=== PATIENT | female | born 1960 | race Caucasian/White ===

== ENCOUNTER 2021-01-31 19:04 | Inpatient (IN) | payer BC ==
[~2021-01-31] VITALS: Ht 157.5 cm; Wt 89.8 kg
[2021-01-31 19:57] LABS: BASOPHILS 0.3 % (0-2); EOSINOPHILS 1.2 % (0-7); HEMATOCRIT 33.9 % (36.0-48.0); HEMOGLOBIN 11.2 g/dL (12-16); IMMATURE GRANULOCYTES 0.1 % (0-5); LYMPHOCYTES 32.1 % (15-50); MCH 31.2 pg (26.0-34.0); MCV 94.4 fL (80.0-100.0); MEAN PLATELET VOLUME 11.2 fL (7.4-10.4); MONOCYTES 6.2 % (2-11); NEUTROPHIL ABS# 6.18 10x3/uL (1.56-6.13); NEUTROPHILS 60.1 % (40-80); PLATELET COUNT 482 10x3/uL (130-400); RBC 3.59 10x6/uL (4.00-5.40); RDW 13.7 % (11.5-14.5); WBC 10.3 10x3/uL (4.8-10.8)
[2021-01-31 19:59] LABS: BILIRUBIN NEGATIVE (NEGATIVE); KETONE NEGATIVE (NEGATIVE); NITRITE NEGATIVE (NEGATIVE); UROBILINOGEN NORMAL mg/dL (< 2)
[2021-01-31 20:23] LABS: BILIRUBIN - TOTAL 0.64 mg/dL (0.2-1.3); CALCIUM 10.5 mg/dL (8.5-10.1); CARBON DIOXIDE 18.1 mmol/L (21.0-32.0); CREATININE - SERUM 7.6 mg/dL (0.6-1.3); POTASSIUM - SERUM 5.1 mmol/L (3.5-5.1); PROTEIN - SERUM 9.3 g/dL (6.4-8.2)
[2021-01-31 20:36] VITALS: BP 109/71
[2021-01-31 21:43] LABS: URIC ACID 8.4 mg/dL (2.6-7.2)
[2021-01-31] MEDS ORDERED: ZYLOPRIM300 MG PO (21:50)
[2021-01-31] MEDS ORDERED: MAXZIDE 75/501 TAB PO (21:51)
[2021-01-31] MEDS ORDERED: ZYRTEC10 MG PO (21:51)
[2021-01-31] MEDS ORDERED: LEVO-T75 MCG PO (21:52)
[2021-01-31] MEDS ORDERED: VITAMIN D21250 MC1 PO (21:53)
[2021-01-31] MEDS ORDERED: PROTONIX40 MG PO (21:53)
[2021-01-31] MEDS ORDERED: LOTENSIN40 MG PO (21:53)
[2021-01-31] MEDS ORDERED: AMBIEN10 MG PO (21:54)
--- NOTE | 2021-01-31 22:06 | NUR ---
PT REPORT GIVEN TO CRISTA IGLESIAS WITH VERBAL ACKNOWLEDGEMENT AT THIS TIME.
--- NOTE | 2021-01-31 22:17 | NUR ---
PT FROM ER VIA WHEELCHAIR, PT AAO X 4, RESP EVEN AND UNLABORED, NO DISTRESS NOTED, NO C/O PAIN OR DISCOMFORT NOTED AT THIS TIME. PT AMBULATED TO BED, CL IN REACH, SR UP X 2.
[2021-01-31 23:05] VITALS: BP 106/68; BMI 36.3
[2021-02-01] VITALS (7 sets, daily range): BP systolic 90–151; BP diastolic 54–98; Ht 157.5 cm; Wt 89.8 kg
[2021-02-01 06:10] LABS: BASOPHILS 0.5 % (0-2); EOSINOPHILS 2.3 % (0-7); HEMATOCRIT 30.3 % (36.0-48.0); IMMATURE GRANULOCYTES 0.1 % (0-5); LYMPHOCYTES 33.2 % (15-50); MCH 30.9 pg (26.0-34.0); MCV 93.5 fL (80.0-100.0); MEAN PLATELET VOLUME 11.5 fL (7.4-10.4); MONOCYTES 6.5 % (2-11); NEUTROPHIL ABS# 4.32 10x3/uL (1.56-6.13); NEUTROPHILS 57.4 % (40-80); PLATELET COUNT 430 10x3/uL (130-400); RBC 3.24 10x6/uL (4.00-5.40); RDW 13.7 % (11.5-14.5)
[2021-02-01 06:36] LABS: WBC 7.5 10x3/uL (4.8-10.8)
[2021-02-01 06:44] LABS: INR 1.34 (0.85-1.17); PROTIME 15.4 SECONDS (11.6-15.0)
[2021-02-01 06:45] LABS: ALBUMIN 3.4 g/dL (3.4-5.0); ALKALINE PHOSPHATASE 88 U/L (30-120); ALT (SGPT) 17 U/L (10-68); APTT 37.4 SECONDS (22.8-39.4); BILIRUBIN - TOTAL 0.39 mg/dL (0.2-1.3); CALCIUM 9.7 mg/dL (8.5-10.1); CHLORIDE - SERUM 100 mmol/L (98-107); CKMB 1.1 U/L (0.0-3.6); CREATINE KINASE 209 UL (21-215); CREATININE - SERUM 6.9 mg/dL (0.6-1.3); GLUCOSE 125 mg/dL (74-106); SODIUM 137 mmol/L (136-145); THYROID STIMULATING HORMONE 4.44 uIU/mL (0.36-3.74); eGFR NON AFRICAN AMERICAN 6 mL/min (90-120)
[2021-02-01 06:58] LABS: CALC OSMOLALITY 307 mosm/kg (275-300)
[2021-02-01 06:59] LABS: UREA NITROGEN 105 mg/dL (7-18)
--- NOTE | 2021-02-01 10:10 | NUR ---
PATIENT BACK IN ROOM
[2021-02-01 15:29] LABS: BILIRUBIN NEGATIVE (NEGATIVE); KETONE NEGATIVE (NEGATIVE); NITRITE NEGATIVE (NEGATIVE); UROBILINOGEN NORMAL mg/dL (< 2)
--- NOTE | 2021-02-01 19:30 | NUR ---
PT IN BED, AAO X 4, RESP EVEN AND UNLABORED, NO DISTRESS NOTED, CL IN REACH, SR UP X 2.
--- NOTE | 2021-02-02 04:50 | NUR ---
I have reviewed this patient and I concur with the Shift Assessment completed by the Licensed Practical Nurse today this shift.
[2021-02-02 06:25] LABS: BASOPHILS 0.2 % (0-2); EOSINOPHILS 3.5 % (0-7); HEMATOCRIT 30.3 % (36.0-48.0); HEMOGLOBIN 9.8 g/dL (12-16); IMMATURE GRANULOCYTES 0.1 % (0-5); LYMPHOCYTE ABS# 2.82 10x3/uL (1.18-3.74); LYMPHOCYTES 33.8 % (15-50); MCH 30.3 pg (26.0-34.0); MCHC 32.3 g/dL (31.0-37.0); MCV 93.8 fL (80.0-100.0); MEAN PLATELET VOLUME 11.8 fL (7.4-10.4); MONOCYTES 7.7 % (2-11); NEUTROPHIL ABS# 4.57 10x3/uL (1.56-6.13); NEUTROPHILS 54.7 % (40-80); PLATELET COUNT 437 10x3/uL (130-400); RBC 3.23 10x6/uL (4.00-5.40); RDW 13.6 % (11.5-14.5); WBC 8.4 10x3/uL (4.8-10.8)
[2021-02-02 06:43] LABS: ANION GAP 13.4 mmol/L (8-16); CALCIUM 9.7 mg/dL (8.5-10.1); CARBON DIOXIDE 29.2 mmol/L (21.0-32.0); PHOSPHOROUS 3.7 mg/dL (2.5-4.9); POTASSIUM - SERUM 3.6 mmol/L (3.5-5.1)
[2021-02-02 06:44] LABS: CREATININE - SERUM 3.8 mg/dL (0.6-1.3)
[2021-02-02 08:17] VITALS: BP 115/64
[2021-02-02 11:36] VITALS: BP 114/61
[2021-02-02 15:58] VITALS: BP 120/59
[2021-02-02 21:15] VITALS: BP 115/62
[2021-02-02] MEDS ORDERED: VISTARIL25 MG PO (23:58)
[2021-02-03 00:52] VITALS: BP 111/52
[2021-02-03 04:45] VITALS: BP 118/71
--- NOTE | 2021-02-03 05:18 | NUR ---
I have reviewed this patient and I concur with the Shift Assessment completed by the Licensed Practical Nurse today this shift.
[2021-02-03 05:42] LABS: BASOPHILS 0.2 % (0-2); EOSINOPHILS 3.6 % (0-7); HEMATOCRIT 30.6 % (36.0-48.0); LYMPHOCYTE ABS# 2.14 10x3/uL (1.18-3.74); LYMPHOCYTES 32.3 % (15-50); MCH 31.2 pg (26.0-34.0); MCHC 32.7 g/dL (31.0-37.0); MCV 95.3 fL (80.0-100.0); MEAN PLATELET VOLUME 11.8 fL (7.4-10.4); MONOCYTES 10.3 % (2-11); NEUTROPHIL ABS# 3.56 10x3/uL (1.56-6.13); NEUTROPHILS 53.6 % (40-80); PLATELET COUNT 370 10x3/uL (130-400); RBC 3.21 10x6/uL (4.00-5.40); RDW 13.6 % (11.5-14.5); WBC 6.6 10x3/uL (4.8-10.8)
[2021-02-03 06:20] LABS: ANION GAP 14.3 mmol/L (8-16); CALCIUM 9.7 mg/dL (8.5-10.1); CARBON DIOXIDE 30.5 mmol/L (21.0-32.0); PHOSPHOROUS 3.5 mg/dL (2.5-4.9); POTASSIUM - SERUM 3.8 mmol/L (3.5-5.1); THYROID STIMULATING HORMONE 2.66 uIU/mL (0.36-3.74)
[2021-02-03 06:26] LABS: CREATININE - SERUM 2.2 mg/dL (0.6-1.3)
--- NOTE | 2021-02-03 08:19 | MORECARE ---
CASE MANAGEMENT DISCHARGE SUMMARY PATIENT: KATIA NICHOLE UNIT: [id number] ADM DATE: 01/31/21 AGE: 60 : 56 SEX: F ROOM/BED: D.2133 AUTHOR: SON,DOC PHYSICIAN: REFERRING PHYSICIAN: ZAYRA HORAN MD DATE OF SERVICE: 02/03/21 Case Management Discharge Planning Summary DCP REVIEW SUMMARY ANTICIPATED D/C DATE: EXPECTED LOS : CASE STATUS: DCP Initiated INITIAL REVIEW: 01/31/2021 INITIAL REVIEWER: Halima Andrews FINAL DISCHARGE DISPOSITION: 01 : Home or Self Care (Routine Discharge) FINAL REVIEWER: Halima Andrews FINAL REVIEW DATE: 02/03/2021 DCP Focus Questions & Answers DCP Screen QUESTION: ANSWER High Risk Factors: : None Walking limitation: Patient stated self rated walking limitation present? : No Age: : 45 - 64 Prior living environment: : Lives with others Disability ranking: : Grade 1: No significant disability DCP Evaluation QUESTION: ANSWER Patient's ability to cope with chronic illness : d. No chronic illness Would patient like to participate in any Care Coordination programs (if applicable): : Not applicable Mental health screen: : No mental health history DCP Re-evaluation QUESTION: ANSWER Would patient like to participate in any Care Coordination programs (if applicable): : Not applicable PATIENT: KATIA NICHOLE ENCOUNTER: [id number] MEDICAL RECORD#: [id number] ADMISSION DATE: 01/31/2021 DISCHARGE DATE: ATTENDING MD: ZAYRA YANEZ : AGE: 60 MARITAL STATUS: M DC PLAN ID: [id number] FACILITY: [facility] PRINTED ON: 02/03/21 8:19 CT All edits/amendments must be made on the electronic document DICTATION DATE: 02/03/21818 MANAGER SALES: DM 02/03/21818 RPT#: [id number] DC DATE: STATUS: ADM IN [facility] [address] [place] [address] END OF REPORT
--- NOTE | 2021-02-03 08:48 | NUR ---
REMOVED SALINE LOCK, DISCUSSED DISCHARGE PAPERWORK AND ANSWERED QUESTIONS. WAITING FOE DAUGHTER TO ARRIVE.
[2021-02-03 08:51] VITALS: BP 134/64
--- NOTE | 2021-02-03 09:56 | MORECARE ---
CASE MANAGEMENT DISCHARGE SUMMARY PATIENT: KATIA NICHOLE UNIT: [id number] ADM DATE: 01/31/21 AGE: 60 : 56 SEX: F ROOM/BED: D.8113 AUTHOR: SONDOC PHYSICIAN: REFERRING PHYSICIAN: ZAYRA HORAN MD DATE OF SERVICE: 02/03/21 Case Management Discharge Planning Summary COMMENTS ENTERED DATE: 02/03/21 9:50 CT COMMENT TYPE: Discharge Planning REVIEWER: Halima Andrews CM spoke with patient to complete initial dc planning assessment. CM educated patient on the CM role and verbal consent given by patient to complete assessment. Patient lives at home with spouse Patient is independent. At discharge patient plans to return home and feels this is a safe discharge. CM discussed availability of home health, rehab services, and medical equipment. Patient will have family to transport home. Patient denied known discharge needs at this time. CM will continue to follow and will assist as needed with dc plans/needs. DCP REVIEW SUMMARY ANTICIPATED D/C DATE: EXPECTED LOS : CASE STATUS: DCP Initiated INITIAL REVIEW: 01/31/2021 INITIAL REVIEWER: Halima Andrews FINAL DISCHARGE DISPOSITION: 01 : Home or Self Care (Routine Discharge) FINAL REVIEWER: Halima Andrews FINAL REVIEW DATE: 02/03/2021 DCP Focus Questions & Answers DCP Screen QUESTION: ANSWER High Risk Factors: : None Walking limitation: Patient stated self rated walking limitation present? : No Age: : 45 - 64 Prior living environment: : Lives with others Disability ranking: : Grade 1: No significant disability DCP Evaluation QUESTION: ANSWER Patient's ability to cope with chronic illness : d. No chronic illness Patient and/or caregiver agree upon recommended discharge plan? : Yes Family / Caregiver's ability to cope with chronic illness: : a. Adequate (ability to meet patient's medical needs, ensures patient attends medical appts.) Patient's current cognitive status: : *Oriented to person, place, situation, time and present Patient gives permission to discuss discharge plans with: (name, relationship and number) : MARA MUÑOZ - KRISSR- [phone] Does the patient have the ability to pay for or attain post discharge needs / services? : Yes Functional screen assessment: : No issues identified Physical Status: : Independent with ADL's Equipment needed for post hospitalization: : None Is there a likelihood that the patient will require additional services to return to the preadmission environment? : No Living Arrangements: : Home with Spouse/Significant Other Results of this evaluation have been discussed with: : Patient Patient with capacity for self-care or can be cared for in same environment as prior to hospitalization? : Yes Baseline cognitive status: : *Oriented to person, place, situation, time and present Physical environment modification needed / anticipated for discharge: : No Planned post hospital services available for patient? : No Planned post hospital services covered by insurance plan? : No Does Patient have transportation to get home and to follow-up medical appointments when discharged from the hospital? : Yes Would patient like to participate in any Care Coordination programs (if applicable): : Not applicable Does the patient have electricity at home? : Yes Does the patient have running water in their house? : Yes Equipment in use: : None Mental health screen: : No mental health history Psychosocial status: : Independent adult (18-64) Abuse/Neglect: : None DCP Re-evaluation QUESTION: ANSWER Would patient like to participate in any Care Coordination programs (if applicable): : Not applicable PATIENT: KATIA NICHOLE ENCOUNTER: [id number] MEDICAL RECORD#: [id number] ADMISSION DATE: 01/31/2021 DISCHARGE DATE: ATTENDING MD: ZAYRA YANEZ : AGE: 60 MARITAL STATUS: M DC PLAN ID: [id number] FACILITY: [facility] PRINTED ON: 02/03/21 9:56 CT All edits/amendments must be made on the electronic document DICTATION DATE: 02/03/21955 ROLLER PRINTING SUPERVISOR: DARI 02/03/21955 RPT#: [id number] DC DATE: STATUS: ADM IN [facility] [address] [place] [address] END OF REPORT
--- NOTE | 2021-02-03 10:00 | NUR ---
TO CAR VIA WHEELCHAIR FOR DAUGHTER TO ESCORT HOME.
[2021-02-03 20:07] LABS: SPE - A/G RATIO 0.8 (0.7-1.7); SPE - ALBUMIN 3.4 g/dL (2.9-4.4); SPE - ALPHA-1 GLOBULIN 0.3 g/dL (0.0-0.4); SPE - ALPHA-2 GLOBULIN 1.3 g/dL (0.4-1.0); SPE - BETA GLOBULIN 1.2 g/dL (0.7-1.3); SPE - GAMMA GLOBULIN 1.6 g/dL (0.4-1.8); SPE - M-SPIKE Not Observed g/dL (Not Observed); SPE - TOTAL PROTEIN 7.8 g/dL (6.0-8.5)
[2021-02-04 17:08] LABS: ANGIOTENSIN CONVERTING ENZYME <5 U/L (14-82)
--- NOTE | 2021-02-04 17:16 | MORECARE ---
CASE MANAGEMENT DISCHARGE SUMMARY PATIENT: KATIA NICHOLE UNIT: [id number] ADM DATE: 01/31/21 AGE: 60 : 56 SEX: F ROOM/BED: D.2303 AUTHOR: SONDOC PHYSICIAN: REFERRING PHYSICIAN: ZAYRA HORAN MD DATE OF SERVICE: 02/04/21 Case Management Discharge Planning Summary COMMENTS ENTERED DATE: 02/03/21 9:50 CT COMMENT TYPE: Discharge Planning REVIEWER: Halima Andrews CM spoke with patient to complete initial dc planning assessment. CM educated patient on the CM role and verbal consent given by patient to complete assessment. Patient lives at home with spouse Patient is independent. At discharge patient plans to return home and feels this is a safe discharge. CM discussed availability of home health, rehab services, and medical equipment. Patient will have family to transport home. Patient denied known discharge needs at this time. CM will continue to follow and will assist as needed with dc plans/needs. DCP REVIEW SUMMARY ANTICIPATED D/C DATE: EXPECTED LOS : CASE STATUS: DCP Initiated INITIAL REVIEW: 01/31/2021 INITIAL REVIEWER: Halima Andrews FINAL DISCHARGE DISPOSITION: 01 : Home or Self Care (Routine Discharge) FINAL REVIEWER: Halima Andrews FINAL REVIEW DATE: 02/03/2021 DCP Focus Questions & Answers DCP Screen QUESTION: ANSWER High Risk Factors: : None Walking limitation: Patient stated self rated walking limitation present? : No Age: : 45 - 64 Prior living environment: : Lives with others Disability ranking: : Grade 1: No significant disability DCP Evaluation QUESTION: ANSWER Patient gives permission to discuss discharge plans with: (name, relationship and number) : MARA MUÑOZ - DTR- [phone] Patient's current cognitive status: : *Oriented to person, place, situation, time and present Family / Caregiver's ability to cope with chronic illness: : a. Adequate (ability to meet patient's medical needs, ensures patient attends medical appts.) Patient and/or caregiver agree upon recommended discharge plan? : Yes Patient's ability to cope with chronic illness : d. No chronic illness Physical Status: : Independent with ADL's Functional screen assessment: : No issues identified Does the patient have the ability to pay for or attain post discharge needs / services? : Yes Living Arrangements: : Home with Spouse/Significant Other Is there a likelihood that the patient will require additional services to return to the preadmission environment? : No Equipment needed for post hospitalization: : None Baseline cognitive status: : *Oriented to person, place, situation, time and present Patient with capacity for self-care or can be cared for in same environment as prior to hospitalization? : Yes Results of this evaluation have been discussed with: : Patient Physical environment modification needed / anticipated for discharge: : No Planned post hospital services available for patient? : No Does Patient have transportation to get home and to follow-up medical appointments when discharged from the hospital? : Yes Planned post hospital services covered by insurance plan? : No Would patient like to participate in any Care Coordination programs (if applicable): : Not applicable Does the patient have electricity at home? : Yes Does the patient have running water in their house? : Yes Equipment in use: : None Mental health screen: : No mental health history Psychosocial status: : Independent adult (18-64) Abuse/Neglect: : None DCP Re-evaluation QUESTION: ANSWER Would patient like to participate in any Care Coordination programs (if applicable): : Not applicable PATIENT: KATIA NICHOLE ENCOUNTER: [id number] MEDICAL RECORD#: [id number] ADMISSION DATE: 01/31/2021 DISCHARGE DATE: 02/03/2021 ATTENDING MD: ZAYRA YANEZ : AGE: 60 MARITAL STATUS: M DC PLAN ID: [id number] FACILITY: [facility] PRINTED ON: 02/04/21 17:16 CT All edits/amendments must be made on the electronic document DICTATION DATE: 02/04/211715 SPOT FACER: DARI 02/04/211715 RPT#: [id number] DC DATE:02/03/21 STATUS: DIS IN [facility] [address] [place] [address] END OF REPORT
== END 2021-02-03 10:01 | disposition home or self-care (01) | DRG 684 ==
LOC: D.ER 19:04 → D.M2 22:07
PROVIDERS: Family Medicine; ADMIT Internal Medicine Nephrology; ATTEND Internal Medicine Nephrology
DX: N17.9 Acute kidney failure, unspecified (principal); T50.4X5A Adverse effect of drugs affecting uric acid metabolism, initial encounter; E83.52 Hypercalcemia; I10 Essential (primary) hypertension; M10.9 Gout, unspecified; K21.9 Gastro-esophageal reflux disease without esophagitis; Z86.73 Personal history of transient ischemic attack (TIA), and cerebral infarction without residual deficits